=== PATIENT | male | born 1960 | race Caucasian/White ===

== ENCOUNTER 2018-01-26 07:21 | Day surgery (SDC) | payer OTHER ==
[2018-01-26] MEDS ORDERED: PROPOFOL 20 ML ×2 (08:24→09:12)
== END 2018-01-26 10:41 | disposition home or self-care (01) ==
LOC: GIL 07:21
DX: Z12.11 Encounter for screening for malignant neoplasm of colon (principal); D12.0 Benign neoplasm of cecum; K62.1 Rectal polyp; K64.4 Residual hemorrhoidal skin tags; I10 Essential (primary) hypertension; E78.5 Hyperlipidemia, unspecified
CPT/HCPCS: 45380; 88305